=== PATIENT | female | born 2000 | race Caucasian/White ===

== ENCOUNTER 2019-03-11 15:30 | Emergency (ER) | payer OTHER ==
[~2019-03-11] VITALS: Ht 167.6 cm; Wt 65.0 kg
[~2019-03-11 15:30] MED LIST: TAMS-14 PO
[2019-03-11 15:32] VITALS: BP 121/73; PULSE 97; RESP 18; Ht 167.6 cm; Wt 65.0 kg
[2019-03-11] MEDS ORDERED: ONDANSETRON 4 MG INJ IV STA (15:38)
[2019-03-11] MEDS ORDERED: KETOROLAC 30 MG INJ IV STA (15:38)
[2019-03-11] MEDS ORDERED: SOD CHLORIDE 0.9% 1,000 ML IV STA (15:38)
[2019-03-11] MEDS: morphine 4 MG/ML VIAL IV STA ×2 (15:53→16:41)
[2019-03-11] MEDS ORDERED: morphine 4 MG/ML VIAL IV STA (18:54)
[2019-03-11] MEDS ORDERED: METOCLOPRAMIDE 10 MG INJ IV ONE (19:00)
[2019-03-11] MEDS ORDERED: ONDANSETRON 4 MG INJ IV PRN ×2 (21:00→21:30)
[2019-03-11] MEDS ORDERED: SOD CHLORIDE 0.9% 1,000 ML IV SCH ×2 (21:00→21:13)
[2019-03-11] MEDS ORDERED: ACETAMINOPHEN 325 MG TAB PO PRN ×2 (21:00→21:30)
[2019-03-11] MEDS ORDERED: NACL 0.9% 3 ML SYG IV SCH (21:30)
[2019-03-11] MEDS ORDERED: BISACODYL (EC) 5 MG TAB PO PRN (21:30)
[2019-03-11] MEDS ORDERED: DOCUSATE SODIUM 100 MG CAP PO PRN (21:30)
[2019-03-11] MEDS ORDERED: HYDROmorphONE 0.5 MG/0.5 ML SYG IV PRN (21:30)
[2019-03-11] MEDS ORDERED: CEFTRIAXONE 2 GM/50 ML (PMX) 50 ML IVPB SCH (22:00)
[2019-03-12] MEDS ORDERED: TAMSULOSIN (SR) 0.4 MG CAP PO SCH (21:00)
== END 2019-03-11 21:44 | disposition left against medical advice (07) ==
LOC: FTE 15:30 → E/R 21:44 → CANBEDREQ 03-12 15:47
DX: N20.0 Calculus of kidney (principal); N12 Tubulo-interstitial nephritis, not specified as acute or chronic; T83.122A Displacement of indwelling ureteral stent, initial encounter; Y73.2 Prosthetic and other implants, materials and accessory gastroenterology and urology devices associated with adverse incidents
CPT/HCPCS: 74018; 74176; 80053; 81001; 81025; 83690; 85025; J1885; J2270; J2405; J2765; J7030; 36415; 96374; 96375; 96376; J0696